=== PATIENT | male | born 1995 | race Caucasian/White ===

== ENCOUNTER 2024-12-06 15:09 | Emergency (ER) | payer OTHER ==
--- NOTE | 2024-12-06 16:27 | ER ---
Nurse's Notes [facility] Name: Jd Caldwlel Age: 29 yrs Sex: Male : 1995 Arrival Date: 12/06/2024 Time: 15:09 Bed 10 Private MD: Diagnosis: Nausea;Radiculopathy, cervical region Presentation: 12/06 15:31 Chief complaint: Patient states: tingling in arms, not feeling right and little abd iw pain , started a couple hours ago. Coronavirus screen: At this time, the client does not indicate any symptoms associated with coronavirus-19. Ebola Screen: No symptoms or risks identified at this time. Initial Sepsis Screen: Does the patient meet any 2 criteria? No. Patient's initial sepsis screen is negative. Does the patient have a suspected source of infection? No. Patient's initial sepsis screen is negative. Risk Assessment: Do you want to hurt yourself or someone else? Patient reports no desire to harm self or others. Onset of symptoms was December 06, 2024. 15:31 Method Of Arrival: Ambulatory iw 15:31 Acuity: SUDARSHAN 3 iw Triage Assessment: 16:30 General: Appears in no apparent distress. Behavior is calm, cooperative. Pain: Denies iw pain. Historical: - Allergies: 15:32 No Known Allergies; iw - Home Meds: 15:32 None [Active]; iw - PMHx: 15:32 None; iw - PSHx: 15:32 None; iw - Immunization history:: Adult Immunizations not up to date. - Infectious Disease History:: Denies. - Social history:: Smoking status: Patient denies any tobacco usage or history of. Screenin:30 [facility] ED Fall Risk Assessment (Adult) History of falling in the last 3 months, iw including since admission No falls in past 3 months (0 pts) Confusion or Disorientation No (0 pts) Intoxicated or Sedated No (0 pts) Impaired Gait No (0 pts) Mobility Assist Device Used No (0 pt) Altered Elimination No (0 pt) Score/Fall Risk Level 0 - 2 = Low Risk Oriented to surroundings, Maintained a safe environment. Abuse screen: Denies threats or abuse. Denies injuries from another. Nutritional screening: No deficits noted. Tuberculosis screening: No symptoms or risk factors identified. Assessment: 15:31 General: Appears in no apparent distress. Behavior is calm, cooperative. Pain: iw Complains of pain in abdomen Pain currently is 4 out of 10 on a pain scale. Pain began 2 hours ago. Neuro: Level of Consciousness is awake, alert, obeys commands, Oriented to person, place, time, situation. Cardiovascular: Denies chest pain, Patient's skin is warm and dry. Respiratory: Respiratory effort is even, unlabored, Respiratory pattern is regular, symmetrical. 16:26 Reassessment: Patient appears in no apparent distress at this time. pt states he kaykay iw like to leave, he feels silly for coming in to ER, he was feeling bad while driving earlier but now he feels fine and he needs to go help his parents move Patient states feeling better. Patient states symptoms have improved. Vital Signs: 15:31 BP 141 / 98; Pulse 79; Resp 16; Temp 98.1; Pulse Ox 100% ; Weight 104.33 kg; Height 5 iw ft. 9 in. ; 15:31 Body Mass Index 33.96 (104.33 kg, 175.26 cm) iw ED Course: 15:12 Patient arrived in ED. mr 15:14 Paty Esposito, FLEX is PHCP. kb 15:14 Jose Brooks MD is Attending Physician. kb 15:30 Patient has correct armband on for positive identification. Provided Education on: . iw 15:32 Triage completed. iw 15:32 Arm band placed on. iw 16:04 EKG done, by ED staff, reviewed by Paty MCCORD. em1 16:15 Initial lab(s) drawn, by ar, sent to lab. Inserted saline lock: 20 gauge in right iw antecubital area, using aseptic technique. Blood collected. Flushed with 10 mL NS. 16:26 Christina Hinojosa, RN is Primary Nurse. iw 16:27 No provider procedures requiring assistance completed. IV discontinued, intact, iw bleeding controlled, No redness/swelling at site. Pressure dressing applied. Patient maintains SpO2 saturation greater than 95% on room air. 16:30 Chest Single View XRAY In Process Unspecified. EDMS Administered Medications: 16:28 Not Given (Patient Refused): [id number] mg IVP once; dilute with 10 mL 0.9% NaCl; iw give over 2 minutes 16:28 Not Given (Patient Refused): ondansetron 4 mg IVP once; over 2 minutes iw 16:28 Not Given (Patient Refused): ns 0.9% 1000 ml IV at 1 bolus Per protocol; to be given as iw a bolus over 60 minutes Medication: 16:32 VIS not applicable for this client. iw Outcome: 16:26 Discharge ordered by . gayatri 16:32 Discharged to home ambulatory, iw 16:32 Condition: good 16:32 Discharge instructions given to patient, Instructed on discharge instructions, follow up and referral plans. Demonstrated understanding of instructions, follow-up care, 16:33 Patient left the ED. iw Signatures: Dispatcher [employer] EDMS Paty Esposito, WELDING MACHINE ASSEMBLER-C WELDING MACHINE ASSEMBLER-Ckb Adilia Goldsmith, Reg Reg mr Christina Hinojosa, RN RN Eulogio Kumar em1
--- NOTE | 2024-12-06 16:27 | EDPHYS ---
Physician Documentation [facility] Name: Jd Caldwell Age: 29 yrs Sex: Male : 1995 Arrival Date: 12/06/2024 Time: 15:09 Bed 10 Private MD: ED Physician Jose Brooks HPI: 12/06 15:14 This 29 yrs old Male presents to ER via Unassigned with complaints of Chest Pain, kb Numbness Of Hand, neck pain. 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 States he drank etoh last night, woke up around 10, had some coffee then developed abd pain (LUQ) and nausea. States he is still having nausea and abd pain. Reports history of anxiety so the tingling could be related to that but he wanted to get it checked out. . Historical: - Allergies: 15:32 No Known Allergies; iw - Home Meds: 15:32 None [Active]; iw - PMHx: 15:32 None; iw - PSHx: 15:32 None; iw - Immunization history:: Adult Immunizations not up to date. - Infectious Disease History:: Denies. - Social history:: Smoking status: Patient denies any tobacco usage or history of. ROS: 15:14 Constitutional: As per HPI kb Exam: 15:14 Constitutional: This is a well developed, well nourished patient who is awake, alert, kb and in no acute distress. Head/Face: Normocephalic, atraumatic. ENT: Moist Mucous membranes Cardiovascular: Regular rate Respiratory: Respirations even and unlabored. No increased work of breathing. Talking in full sentences Abdomen/GI: Soft, non-tender. No distention Skin: Warm, dry with normal turgor. Normal color. MS/ Extremity: Pulses equal, no cyanosis. Neurovascular intact. Full, normal range of motion. Neuro: Awake and alert, GCS 15, oriented to person, place, time, and situation. 16:02 ECG was reviewed by the Attending Physician. kb Vital Signs: 15:31 BP 141 / 98; Pulse 79; Resp 16; Temp 98.1; Pulse Ox 100% ; Weight 104.33 kg; Height 5 iw ft. 9 in. ; 15:31 Body Mass Index 33.96 (104.33 kg, 175.26 cm) iw MDM: 15:14 Medical Screening Exam initiated kb 16:24 Differential diagnosis: gastroenteritis, GERD, acute mi, arrhythmia, anxiety. Data kb reviewed: vital signs, nurses notes. Counseling: I had a detailed discussion with the patient and/or guardian regarding the historical points, exam findings, and any diagnostic results supporting the discharge/admit diagnosis, the need for outpatient follow up, a family practitioner, to return to the emergency department if symptoms worsen or persist or if there are any questions or concerns that arise at home. ED course: Pt states he is feeling back to normal and would like to leave. States he needs to go help his parents with something and doesn't think he needs to be here anymore.. 12/06 15:19 Order name: CBC with Diff kb 12/06 15:19 Order name: CMP kb 12/06 15:19 Order name: Lipase kb 12/06 15:21 Order name: Troponin High Sensitivity kb 12/06 15:21 Order name: Chest Single View XRAY kb 12/06 15:21 Order name: EKG; Complete Time: 15:21 kb 12/06 15:19 Order name: IV Saline Lock; Complete Time: 16:28 kb 12/06 15:19 Order name: Labs collected and sent; Complete Time: 16:28 kb 12/06 15:21 Order name: EKG - Nurse/Tech; Complete Time: 16:04 kb EC:02 Rate is 68 beats/min. Rhythm is regular. QRS [place] is Normal. [place] interval is normal at kb 170 msec. QRS interval is normal at 108 msec. QT interval is normal at 401 msec. Administered Medications: 16:28 Not Given (Patient Refused): [id number] mg IVP once; dilute with 10 mL 0.9% NaCl; iw give over 2 minutes 16:28 Not Given (Patient Refused): ondansetron 4 mg IVP once; over 2 minutes iw 16:28 Not Given (Patient Refused): ns 0.9% 1000 ml IV at 1 bolus Per protocol; to be given as iw a bolus over 60 minutes Disposition: 12/07 12:39 Co-signature as Attending Physician, Jose Brooks MD I agree with the assessment and fritz plan of care. Disposition Summary: 12/06/24 16:26 Discharge Ordered Notes: Location: Home kb Condition: Stable kb Diagnosis - Nausea kb - Radiculopathy, cervical region kb Followup: kb - With: Emergency Department - When: As needed - Reason: Worsening of condition Followup: kb - With: Private Physician - When: 2 - 3 days - Reason: Recheck today's complaints, Continuance of care, Re-evaluation by your physician Discharge Instructions: - Discharge Summary Sheet kb - Nausea, Adult, [id number] kb - Cervical Radiculopathy, [id number] kb Forms: - Medication Reconciliation Form kb - Antibiotic Education kb - Prescription Opioid Use kb - Patient Portal Instructions kb - Leadership Thank You Letter kb Signatures: Dispatcher [employer] EDPaty Gibbs, CHECKERING MACHINE OPERATOR-C CHECKERING MACHINE OPERATOR-Jose Duarte MD MD cha Williams, Irene, RN RN iw Corrections: (The following items were deleted from the chart) 12/06 15:21 15:14 Pt is a 29 year old male who presents for tingling to both hands, pain to kb posterior neck and numbness to left 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 States he drank etoh last night, woke up around 10, had some coffee then developed abd pain and nausea. States he is still having nausea and abd pain. Reports history of anxiety so the tingling could be related to that but he wanted to get it checked out. . kb 15:22 15:22 Chest Single View+RAD.RAD.BRZ ordered. EDMS EDMS
[2024-12-06 16:37] VITALS: BP 141/98; TEMP 98.1; O2SAT 100
[2024-12-06 16:45] LABS: Absolute Eosinophils 0.1 K/uL (0-0.5); Absolute Lymphocytes (CBC) 1.5 K/uL (0.7-4.9); Absolute Monocytes 0.7 K/uL (0.1-1.3); Absolute Neutrophil 3.6 K/uL (1.8-8.0); Basophils % 0.7 % (0-1.3); Eosinophils % 2.4 % (0-4.4); Hematocrit 42.1 % (39.6-49.0); Hemoglobin 14.8 g/dL (13.6-17.9); MCH 30.9 pg (27.0-35.0); MCHC 35.2 g/dL (32.0-36.0); MCV 87.9 fL (80-100); MPV 9.7 fL (7.6-11.3); Monocytes % 12.3 % (3.3-12.3); Neutrophils % 59.6 % (41.7-73.7); Platelets 266 thou/uL (152-406); RBC Red Blood Cell Count 4.79 M/uL (4.33-5.43); Red Cell Distribution Width 13.2 % (12.1-15.2)
--- NOTE | 2024-12-06 16:46 | RAD REPORT ---
Procedure: Chest Single View HISTORY: Chest pain COMPARISON: none FINDINGS: The lungs appear clear of acute infiltrate. No significant pleural effusion noted. The heart is normal size. IMPRESSION: No acute abnormality is displayed.
[2024-12-06 17:04] LABS: Albumin 4.2 g/dL (3.4-5.0); Albumin/Globulin Ratio 1.3 (1.1-1.8); Bilirubin Total 0.4 mg/dL (0.2-1.0); Globulin 3.3 g/dL (2.3-3.5); Protein, Total 7.5 g/dL (6.4-8.2)
--- NOTE | 2024-12-07 11:58 | EKG ---
Test Date: 2024-12-06 Test Time: 16:00:05 Print Room Worker: YE MEASUREMENT RESULTS: Intervals: Rate: 68 ND: 170 QRSD: 108 QT: 378 QTc: 401 Pillow: P: 52 ND: 170 QRS: 25 T: 51 INTERPRETIVE STATEMENTS: Normal sinus rhythm Normal ECG No previous ECG available for comparison Electronically Signed On 12-07-24 11:56:31 ADMINISTRATOR OF HOME HEALTH by Mati Milan
== END 2024-12-06 16:33 | disposition home or self-care (01) ==
LOC: ER 15:09
DX: R11.0 Nausea (principal); M54.12 Radiculopathy, cervical region; R10.12 Left upper quadrant pain
CPT/HCPCS: 36415; 71045; 80053; 83690; 84484; 85025; 93005; 99284

== ENCOUNTER 2025-06-06 20:08 | Emergency (ER) | payer OTHER ==
--- NOTE | 2025-06-06 21:27 | RAD REPORT ---
Procedure: Chest Single View HISTORY: Chest pain COMPARISON: April 2025 FINDINGS: The lungs appear clear of acute infiltrate. No significant pleural effusion noted. The heart is normal size. IMPRESSION: No acute abnormality is displayed.
[2025-06-06 21:37] LABS: Absolute Lymphocytes (CBC) 1.9 K/uL (0.7-4.9); Hematocrit 39.6 % (39.6-49.0); Hemoglobin 13.7 g/dL (13.6-17.9); MCH 30.5 pg (27.0-35.0); MCHC 34.5 g/dL (32.0-36.0); MCV 88.4 fL (80-100); MPV 9.5 fL (7.6-11.3); Nucleated RBC Absolute Count 0.0 (0-0); Nucleated Red Blood Cells % 0.0 % (0-0); RBC Red Blood Cell Count 4.48 M/uL (4.33-5.43); White Blood Count 6.90 thou/uL (4.3-10.9)
[2025-06-06 21:53] LABS: ALT/SGPT 37 U/L (16-61); AST/SGOT 13 U/L (15-37); Albumin 4.2 g/dL (3.4-5.0); Albumin/Globulin Ratio 1.3 (1.1-1.8); Alkaline Phosphatase 60 U/L (45-117); Anion Gap 14.6 mEq/L (5.0-15.0); BUN Blood Urea Nitrogen 20 mg/dL (7-18); Globulin 3.2 g/dL (2.3-3.5); Glucose Level 107 mg/dL (74-106); Potassium 3.6 mEq/L (3.5-5.1); Troponin High Sensitivity 3.6 pg/mL (<58.9)
[2025-06-06 21:56] LABS: Bilirubin Indirect, Calculated 0.5 mg/dL (0.2-0.8)
--- NOTE | 2025-06-06 23:16 | RAD REPORT ---
EXAM DESCRIPTION: Abdomen Pelvis W Contrast CLINICAL HISTORY: 29 years Male, ABD PAIN TECHNIQUE: Helical CT axial images are obtained from the lung bases to the pubic symphysis with IV co ntrast. No oral contrast was administered. Multiplanar reconstruction. This exam was performed according to our departmental dose-optimization program, which includes automated exposure control, a djustment of the mA and/or kV according to patient size and/or use of iterative reconstruction technique. COMPARISON: None. FINDINGS: LUNG BASES: No basilar consolidation or effusions. LIVER: Normal in size. Normal attenuation. No focal masses. HEPATOBILIARY: Normal-appearing gallbladder. No intra- or extrahepatic ductal dilatation. SPLEEN: Normal size. PANCREAS: Normal size and contour. No focal mass. ADRENAL GLANDS: Normal size. No adrenal masses. KIDNEYS: Bilateral kidneys are normal in size without obstructing calculi or hydronephrosis. No nep hrolithiasis. No significant cysts are present. No focal solid mass. BOWEL AND MESENTERY: No small or large bowel dilatation. No colonic diverticulosis. Normal appendix . No abnormal mesenteric lymphadenopathy. No free fluid or pneumoperitoneum. RETROPERITONEUM: Normal caliber abdominal aorta without aneurysm. No abnormal retroperitoneal lymphad enopathy. PELVIS: Urinary bladder is unremarkable. Normal-sized prostate gland. ABDOMINAL WALL: The abdominal wall is intact. BONES: No suspicious osseous lytic or blastic lesions seen. IMPRESSION: 1. No acute intra-abdominal or pelvic disease. Electronically signed by: Joseph Romero MD 06/06/2025 11:08 PM CDT 1P Due to temporary technical issues with the PACS/Travark reporting system, reports are being yoli d by the in-house radiologist without review as a courtesy to ensure prompt reporting the interpreting radiologist is fully responsible for the content of the report. Transcribed Date/Time: 06/06/2025 11:16 PM
--- NOTE | 2025-06-06 23:32 | ER ---
Nurse's Notes [facility] Name: Jd Caldwell Age: 29 yrs Sex: Male : 1995 Arrival Date: 06/06/2025 Time: 20:08 Bed 5 Private MD: Diagnosis: Upper abdominal pain, unspecified;Anxiety disorder, unspecified Presentation: 06/06 20:22 Chief complaint: Patient states: WAS DRIVING AND BOTH ARMS AND HANDS WENT NUMB AND dd2 TINGLING AND FELT LIKE 'SOMETHING' WAS PUSHING OUT OF HIS STOMACH. Coronavirus screen: At this time, the client does not indicate any symptoms associated with coronavirus-19. Ebola Screen: No symptoms or risks identified at this time. Initial Sepsis Screen: Does the patient meet any 2 criteria? No. Patient's initial sepsis screen is negative. Does the patient have a suspected source of infection? No. Patient's initial sepsis screen is negative. Risk Assessment: Do you want to hurt yourself or someone else? Patient reports no desire to harm self or others. Onset of symptoms was June 06, 2025. 20:22 Method Of Arrival: Ambulatory dd2 20:22 Acuity: SUDARSHAN 3 dd2 Triage Assessment: 20:25 General: Appears in no apparent distress. Behavior is calm, cooperative, appropriate dd2 for age. Pain: Complains of pain in left upper quadrant. Cardiovascular: Denies chest pain. GI: Reports upper abdominal pain, nausea. Musculoskeletal: Reports pain in low back area. Historical: - Allergies: 20:25 No Known Allergies; dd2 - PMHx: 20:25 Anxiety; dd2 - PSHx: 20:25 None; dd2 - Immunization history:: Adult Immunizations up to date. - Infectious Disease History:: Denies. - Social history:: Smoking status: Patient denies any tobacco usage or history of. Screenin:30 [facility] ED Fall Risk Assessment (Adult) History of falling in the last 3 months, cp4 including since admission No falls in past 3 months (0 pts) Confusion or Disorientation No (0 pts) Intoxicated or Sedated No (0 pts) Impaired Gait No (0 pts) Mobility Assist Device Used No (0 pt) Altered Elimination No (0 pt) Score/Fall Risk Level 0 - 2 = Low Risk Oriented to surroundings, Maintained a safe environment, Assessed \T\ reinforced patient's understanding of fall precautions, Hourly rounding (assess needs \T\ fall precautionary measures) done. Abuse screen: Denies threats or abuse. Denies injuries from another. Nutritional screening: No deficits noted. Tuberculosis screening: No symptoms or risk factors identified. Never had TB. Assessment: 21:30 General: Appears in no apparent distress. uncomfortable, Behavior is calm, cooperative, cp4 appropriate for age. Pain: Complains of pain in back and low back area and abdomen and left upper quadrant Pain does not radiate. Pain currently is 4 out of 10 on a pain scale. Pain began 1 hour ago. Neuro: Level of Consciousness is awake, alert, obeys commands, Oriented to person, place, time, situation, Histologic Technician are equal bilaterally Moves all extremities. Gait is steady, Speech is normal, Facial symmetry appears normal, Pupils are PERRLA, Intact. Cardiovascular: Patient's skin is warm and dry. Respiratory: Airway is patent Respiratory effort is even, unlabored. GI: No signs and/or symptoms were reported involving the gastrointestinal system. : No signs and/or symptoms were reported regarding the genitourinary system. EENT: No signs and/or symptoms were reported regarding the EENT system. Derm: No signs and/or symptoms reported regarding the dermatologic system. Musculoskeletal: No signs and/or symptoms reported regarding the musculoskeletal system. Vital Signs: 20:22 BP 155 / 103; Pulse 84; Resp 16; Temp 98.1; Pulse Ox 100% on R/A; Weight 102.06 kg; dd2 Height 5 ft. 9 in. ; Pain 4/10; 21:29 BP 125 / 86; Pulse 70; Resp 18; Pulse Ox 100% ; cp4 22:27 BP 129 / 93; Pulse 66; Resp 18; Pulse Ox 98% ; cp4 23:44 BP 126 / 91; Pulse 53; Resp 18; Pulse Ox 98% ; cp4 20:22 Body Mass Index 33.23 (102.06 kg, 175.26 cm) dd2 20:22 Pain Scale: Adult dd2 ED Course: 20:09 Patient arrived in ED. jj6 20:19 [facility] Espos[facility]C [facility] kb 20:19 Jose Brooks MD is Attending Physician. kb 20:25 Triage completed. dd2 20:25 Arm band placed on right wrist. dd2 21:11 XRAY Chest (1 view) In Process Unspecified. EDMS 21:24 Jessica Schwab is Primary Nurse. cp4 21:30 Bed in low position. Call light in reach. Side rails up X2. Client placed on continuous cp4 cardiac and pulse oximetry monitoring. NIBP monitoring applied. satellite project site monitor on. Pulse ox on. NIBP on. 21:30 Basic Metabolic Panel Sent. oe 21:30 CBC with Diff Sent. oe 21:30 LFT's Sent. oe 21:30 Troponin HS Sent. oe 21:30 No provider procedures requiring assistance completed. Patient maintains SpO2 cp4 saturation greater than 95% on room air. 21:31 Inserted saline lock: 20 gauge in right antecubital area, using aseptic technique. oe Blood collected. Flushed with 10 mL NS. 21:31 EKG done, by ED staff, reviewed by Paty MCCORD. oe 22:36 CT Abd/Pelvis - IV Contrast Only In Process Unspecified. EDMS 23:58 Provided Education on: abdominal pain and panic attack. . cp4 23:59 intact, bleeding controlled, No redness/swelling at site. Pressure dressing applied. cp4 Administered Medications: No medications were administered Medication: 21:30 VIS not applicable for this client. cp4 Outcome: 23:31 Discharge ordered by . kb 23:59 Discharged to home ambulatory, cp4 23:59 Condition: stable 23:59 Discharge instructions given to patient, Instructed on discharge instructions, follow up and referral plans. Demonstrated understanding of instructions, follow-up care, 06/07 00:00 Patient left the ED. cp4 Signatures: Dispatcher [employer] EDWV Paty Esposito FNP-C FNP-Manuel Poon oe Rosy Little jj6 Jessica Schwab cp4 SIERRA WARD, RN RN dd2
--- NOTE | 2025-06-06 23:32 | EDPHYS ---
Physician Documentation [facility] Name: Jd Caldwell Age: 29 yrs Sex: Male : 1995 Arrival Date: 06/06/2025 Time: 20:08 Bed 5 Private MD: ED Physician Jose Brooks HPI: 06/06 20:35 This 29 yrs old Male presents to ER via Ambulatory with complaints of Chest Pain, kb Numbness Of Hand. 20:35 Patient is a 29-year-old male who presents for tingling to bilateral hands while kb driving just prior to arrival. States he felt like something was pushing out of the left upper quadrant of his abdomen that caused pain and then the tingling started after that. Denies nausea, vomiting, diarrhea. Reports he has had left flank pain for about a week. Denies urinary symptoms.. Historical: - Allergies: 20:25 No Known Allergies; dd2 - PMHx: 20:25 Anxiety; dd2 - PSHx: 20:25 None; dd2 - Immunization history:: Adult Immunizations up to date. - Infectious Disease History:: Denies. - Social history:: Smoking status: Patient denies any tobacco usage or history of. ROS: 20:35 Constitutional: As per HPI kb Exam: 20:35 Constitutional: This is a well developed, well nourished patient who is awake, alert, kb and in no acute distress. Head/Face: Normocephalic, atraumatic. ENT: Moist Mucous membranes Cardiovascular: Regular rate Respiratory: Respirations even and unlabored. No increased work of breathing. Talking in full sentences Abdomen/GI: Soft, non-tender. No distention Skin: Warm, dry with normal turgor. Normal color. MS/ Extremity: Pulses equal, no cyanosis. Neurovascular intact. Full, normal range of motion. Neuro: Awake and alert, GCS 15, oriented to person, place, time, and situation. 20:35 Back: CVA tenderness, that is mild, is noted on the left, 21:35 ECG was reviewed by the Attending Physician. Vital Signs: 20:22 BP 155 / 103; Pulse 84; Resp 16; Temp 98.1; Pulse Ox 100% on R/A; Weight 102.06 kg; dd2 Height 5 ft. 9 in. ; Pain 4/10; 21:29 BP 125 / 86; Pulse 70; Resp 18; Pulse Ox 100% ; cp4 22:27 BP 129 / 93; Pulse 66; Resp 18; Pulse Ox 98% ; cp4 23:44 BP 126 / 91; Pulse 53; Resp 18; Pulse Ox 98% ; cp4 20:22 Body Mass Index 33.23 (102.06 kg, 175.26 cm) dd2 20:22 Pain Scale: Adult dd2 MDM: 20:19 Medical Screening Exam initiated kb 20:35 Data reviewed: vital signs, nurses notes. kb 23:30 Differential diagnosis: gastroparesis, pancreatitis, acute mi, arrhythmia, anxiety. kb Test considered but Not performed: X-ray: CXR no pneumonia, pneumothorax. Counseling: I had a detailed discussion with the patient and/or guardian regarding the historical points, exam findings, and any diagnostic results supporting the discharge/admit diagnosis, lab results, radiology results, the need for outpatient follow up, a family practitioner, to return to the emergency department if symptoms worsen or persist or if there are any questions or concerns that arise at home. 06/06 20:24 Order name: Basic Metabolic Panel; Complete Time: 21:59 kb 06/06 20:24 Order name: CBC with Diff; Complete Time: 21:39 kb 06/06 20:24 Order name: LFT's; Complete Time: 21:59 kb 06/06 20:24 Order name: Troponin HS; Complete Time: 21:59 kb 06/06 20:24 Order name: XRAY Chest (1 view); Complete Time: 21:32 kb 06/06 20:24 Order name: CT Abd/Pelvis - IV Contrast Only; Complete Time: 23:27 kb 06/06 20:24 Order name: Cardiac monitoring; Complete Time: 21:20 kb 06/06 20:24 Order name: EKG - Nurse/Tech; Complete Time: 21:20 kb 06/06 20:24 Order name: IV Saline Lock; Complete Time: 21:32 kb 06/06 20:24 Order name: Labs collected and sent; Complete Time: 21:32 kb 06/06 20:24 Order name: O2 Per Protocol; Complete Time: 21:32 kb 06/06 20:24 Order name: O2 Sat Monitoring; Complete Time: 21:30 kb EC:35 Rate is 58 beats/min. Rhythm is regular. QRS [place] is Normal. [place] interval is normal at kb 158 msec. QRS interval is normal at 108 msec. QT interval is normal at 388 msec. Administered Medications: No medications were administered Disposition Summary: 06/06/25 23:31 Discharge Ordered Notes: Location: Home kb Condition: Stable kb Diagnosis - Upper abdominal pain, unspecified kb - Anxiety disorder, unspecified kb Followup: kb - With: Emergency Department - When: As needed - Reason: Worsening of condition Followup: kb - With: Private Physician - When: 2 - 3 days - Reason: Recheck today's complaints, Continuance of care, Re-evaluation by your physician Discharge Instructions: - Discharge Summary Sheet kb - Abdominal Pain, Adult, [id number] kb - Panic Attack, [id number] kb Forms: - Medication Reconciliation Form kb - Antibiotic Education kb - Prescription Opioid Use kb - Patient Portal Instructions kb - Leadership Thank You Letter kb Addendum: 06/08/2025 13:37 Co-signature as Attending Physician, Jose Brooks MD I agree with the assessment and c alvarez plan of care. Signatures: Dispatcher [employer] EDPaty Gibbs, ROUTE CDL DRIVER-C ROUTE CDL DRIVER-CkJose Quintanilla MD MD cha DAVIS, DIANA, RN RN dd2 Corrections: (The following items were deleted from the chart) 06/06 20:25 20:25 BASIC METABOLIC PANEL+C.LAB.BRZ ordered. EDMS EDMS 20:25 20:25 CBC+H.LAB.BRZ ordered. EDMS EDMS 20:25 20:25 HEPATIC FUNCTION+C.LAB.BRZ ordered. EDMS EDMS 20:25 20:25 Troponin High Sensitivity+C.LAB.BRZ ordered. EDMS EDMS 20:25 20:25 Chest Single View+RAD.RAD.BRZ ordered. EDMS EDMS 20:25 20:25 Abdomen Pelvis W Con+CT.RAD.BRZ ordered. EDMS EDMS
[2025-06-07 00:45] VITALS: TEMP 98.1
[2025-06-07 00:48] VITALS: O2SAT 98
[2025-06-07 00:50] VITALS: BP 126/91
== END 2025-06-07 | disposition home or self-care (01) ==
LOC: ER 20:08
DX: R10.12 Left upper quadrant pain (principal); F41.9 Anxiety disorder, unspecified
CPT/HCPCS: 93005; 85025; 80048; 36415; 80076; 84484; 74177; 71045; 99284; Q9967